=== PATIENT | male | born 1955 ===

== ENCOUNTER 2024-09-08 11:46 | Emergency (ER) | payer MEDICARE, OTHER, SELFPAY ==
[2024-09-08 11:47] VITALS: BP 153/78
--- NOTE | 2024-09-08 13:52 | ED.GENMED ---
History of Present Illness
<Farrah Penaloza PA-C - Last Filed: 09/08/24 20:15>
General
Chief Complaint: Male Genito-Urinary Symptoms
Source: patient
Exam Limitations: none
Time Seen by Provider: 09/08/24 12:59
Nursing documentation reviewed up to this point in time: agreed with
History of Present Illness
History of Present Illness:
Patient is a 69-year-old male with history hypertension, hyperlipidemia presenting to the emergency department with right inguinal pain. Patient states earlier this morning he was lying in his recliner when he had somewhat acute onset sharp pain in
his right inguinal region. He felt some radiation into his right lower abdomen although no radiation to back. He then felt nauseous and had 1 episode of dry heaving. He took Motrin although given persistence of symptoms presented to the emergency
department for evaluation. Patient denies any associated fever, chills, diarrhea/constipation, or urinary discomfort. Symptoms have improved since arrival to emergency department and now patient only has very minimal discomfort in right groin.
Of note�patient does state that about a week ago he noticed gradual onset swelling of his right scrotum. He was seen by his primary care last Monday where they suspected a hydrocele and ordered an outpatient scrotal ultrasound. However�given
scheduling difficulties�patient was unable to have ultrasound performed yet. Patient denies any pain in scrotum. No concern for STIs/STDs.
No history of kidney stones.
Review of Systems
<Farrah Penaloza PA-C - Last Filed: 09/08/24 20:15>
Review of Systems
Allergies reviewed?: Yes
All Other Systems: ROS reviewed and negative except as documented in HPI and ROS
Phy Exam
<Farrah Penaloza PA-C - Last Filed: 09/08/24 20:15>
Physical Exam
Physical Exam:
Vitals: Hypertensive, otherwise stable vital signs. Afebrile
General: Patient is well appearing, no acute distress. Nontoxic appearing
Skin: Warm and dry, no rashes or lesions
Head: Normocephalic, atraumatic
Eyes: Sclera nonicteric. EOMs intact. No nystagmus.
Throat: Protecting airway
Neck: Normal ROM, no cervical spine tenderness, no meningismus
Cardiac: Regular rate and rhythm, no murmurs.
Pulm: Normal respiratory effort, no wheezes, rales, rhonchi heard on exam.
Abdomen: Abdomen soft. Very mild right inguinal tenderness without palpable bulge. No rebound tenderness or guarding. No CVA tenderness.
: Right scrotal swelling without overlying erythema or tenderness to palpation.
Extremities: No evidence of cyanosis or edema. Palpable DP pulses bilaterally
Neuro: AAOx3. Grossly intact.
Psychiatric: Normal affect.
Course
<Farrah Penaloza PA-C - Last Filed: 09/08/24 20:15>
Orders/Labs/Results
Orders:
Orders
09/08/24 13:40
CT Abd/pelvis W Iv Cont Urgent
Comment:
Reason For Exam: Right inguinal pain, +N/V
Ketorolac [Toradol] 15 mg IV NOW STA
Scrotum US [US Scrotum] Urgent
Comment:
Reason For Exam: Right scrotal swelling
09/08/24 15:04
Complete Blood Count/With Diff Urgent
Comprehensive Metabolic Panel Urgent
Urinalysis Reflex To Culture Urgent
Date Specimen was Collected: 09/08/24
Time Specimen was Collected: 14:49
Urine Microscopic Reflex Cult Urgent
Abnormal Lab Results
09/08/24
15:04
WBC 12.6 H 10^3/uL
(4.8-10.8)
MCH 31.5 H pg
(27.0-31.0)
Abs Immat Gran (auto) 0.1 H 10^3/uL
(0-0.05)
Absolute Neuts (auto) 10.6 H 10^3/uL
(1.4-6.5)
Absolute Monos (auto) 0.7 H 10^3/uL
(0.1-0.6)
Neutrophils % 83.9 H %
(42.2-75.2)
Lymphocytes % 9.7 L %
(20.5-51.1)
Glucose 127 H mg/dl
(70-99)
Ur Occult Blood Reflex 2+ A
(Negative)
Urine RBC 3-6 A /HPF
(0-2)
Urine Bacteria (Reflex) Few A
(Negative)
Urine Albumin (Reflex) 1+ A
(Neg - Trace)
09/08/24 15:04
09/08/24 15:04
Vital Signs
Initial and Last Documented VS:
Initial Vital Signs
Temp Pulse Resp BP Pulse Ox
97.9 F 51 20 153/78 100
09/08/24 11:47 09/08/24 11:47 09/08/24 11:47 09/08/24 11:47 09/08/24 11:47
Last Documented Vital Signs
Temp Pulse Resp BP Pulse Ox
97.9 F 57 18 135/81 97
09/08/24 11:47 09/08/24 18:00 09/08/24 18:00 09/08/24 18:00 09/08/24 18:00
<Dylon Pinto MD - Last Filed: 09/08/24 17:47>
Orders/Labs/Results
Orders:
Orders
09/08/24 13:40
CT Abd/pelvis W Iv Cont Urgent
Comment:
Reason For Exam: Right inguinal pain, +N/V
Ketorolac [Toradol] 15 mg IV NOW STA
Scrotum US [US Scrotum] Urgent
Comment:
Reason For Exam: Right scrotal swelling
09/08/24 15:04
Complete Blood Count/With Diff Urgent
Comprehensive Metabolic Panel Urgent
Urinalysis Reflex To Culture Urgent
Date Specimen was Collected: 09/08/24
Time Specimen was Collected: 14:49
Urine Microscopic Reflex Cult Urgent
Abnormal Lab Results
09/08/24
15:04
WBC 12.6 H 10^3/uL
(4.8-10.8)
MCH 31.5 H pg
(27.0-31.0)
Abs Immat Gran (auto) 0.1 H 10^3/uL
(0-0.05)
Absolute Neuts (auto) 10.6 H 10^3/uL
(1.4-6.5)
Absolute Monos (auto) 0.7 H 10^3/uL
(0.1-0.6)
Neutrophils % 83.9 H %
(42.2-75.2)
Lymphocytes % 9.7 L %
(20.5-51.1)
Glucose 127 H mg/dl
(70-99)
Ur Occult Blood Reflex 2+ A
(Negative)
Urine RBC 3-6 A /HPF
(0-2)
Urine Bacteria (Reflex) Few A
(Negative)
Urine Albumin (Reflex) 1+ A
(Neg - Trace)
09/08/24 15:04
09/08/24 15:04
Vital Signs
Initial and Last Documented VS:
Initial Vital Signs
Temp Pulse Resp BP Pulse Ox
97.9 F 51 20 153/78 100
09/08/24 11:47 09/08/24 11:47 09/08/24 11:47 09/08/24 11:47 09/08/24 11:47
Last Documented Vital Signs
Temp Pulse Resp BP Pulse Ox
97.9 F 57 18 135/81 97
09/08/24 11:47 09/08/24 18:00 09/08/24 18:00 09/08/24 18:00 09/08/24 18:00
<Farrah Penaloza PA-C - Last Filed: 09/08/24 20:15>
MDM/Problems Addressed
Differential Diagnosis Includes:
Not limited to: Inguinal hernia, hydrocele, kidney stone, UTI, epididymitis, orchitis, etc.
MDM/Problems Addressed:
69-year-old male presenting with right scrotal swelling and right inguinal discomfort essentially resolved by arrival to emergency department. There was nausea and few episodes of dry heaves this morning. No fever, urinary complaints, changes in
bowel habits. Mildly hypertensive, otherwise stable vital signs. Physical exam as above. Patient with obvious scrotal swelling although no tenderness or erythema to suggest epididymitis/orchitis or infectious process. Possibilities include
hydrocele versus hernia. No palpable bulge in inguinal region. Given right inguinal pain today�will obtain labs, urine and CT for further evaluation to rule out intra-abdominal process, kidney stone, possible inguinal hernia. Will check scrotal
ultrasound given obvious scrotal swelling. Toradol for pain. Will closely monitor and reassess.
Update: Labs reviewed. Mild leukocytosis. Chemistry unremarkable. Urine with few RBCs, otherwise no signs of infection. Scrotal ultrasound does show large right inguinal hernia extending into scrotal sac. CT scan shows large right inguinal
hernia once again which contains few loops of bowel and mild inflammatory change surrounding hernia sac. No evidence of strangulation. Of note�patient was made aware of small pulmonary nodule on CT scan which she will follow with primary.
After verbal consent obtained manual reduction of hernia was attempted by myself and attending physician although unsuccessful. Patient tolerated procedure well and remains in no discomfort in emergency department. Case was discussed at length
with general surgery, Dr. Sprague. Given patient hemodynamically stable, asymptomatic with no evidence of strangulation or bowel obstruction�no indication for emergent reduction. Offered patient admission for general surgery consult tomorrow
although after shared decision making we will discharge home with general surgery follow-up outpatient. Patient appears very well and comfortable. Very strict return precautions discussed including any signs of strangulation, bowel obstruction.
Advised to avoid heavy lifting, straining, Wear supportive underwear/obtain hernia belt for support. Patient and patient's comfortable to plan. All questions answered.
Chronic conditions affecting care:
Hypertension
Acute Exacerbation and/or Progression of Chronic Illness:
Acutely apprehensive
<Farrah Penaloza PA-C - Last Filed: 09/08/24 20:15>
*Radiology
Radiology exam reviewed: preliminary read by ED provider and radiology read reviewed (CT and scrotal ultrasound showed a large right inguinal hernia extending into scrotal sac)
*Pulse Oximetry
Patient hypoxic: no
*EKG
Interpreted by ED Provider?: NA
*Slat Pickler Interpretation
Rate: Slat Pickler- N/A
*Critical Care Note
Total Time (30-74mins, 75-104mins- exclusive of procedures): Not Applicable
<Farrah Penaloza PA-C - Last Filed: 09/08/24 20:15>
Patient Management
Discussion with other providers: Hand Buffer (Discussed with general surgery)
Escalation/DeEscalation of care consider admission/obs:
Considered admission for general surgery consult although patient hemodynamically stable, in no discomfort�stable for discharge home and outpatient general surgery consult
ED Attending Note
<Farrah Penaloza PA-C - Last Filed: 09/08/24 20:15>
-
Portions of this chart may have been created with voice recognition software.� Occasional wrong word or��sound alike� substitutions may have occurred due to the inherent limitations of voice recognition software.
<Dylon Pinto MD - Last Filed: 09/08/24 17:47>
ED Attending Note
Patient seen and examined by attending physician: Yes
I performed the substantive portion of visit, reviewed & personally made and approve the management plan that is documented in note by myself or LIANA.: Yes
ED Attending Note:
I have seen and evaluated the patient with a [id number] encounter. I have spoken to the [PA] and involved in the medical history, the physical exam, medical decision making.
Evaluation and management service: agree unless noted differently below.
Results interpretation: agree unless noted differently below.
69-year-old male with history of hypertension, hyperlipidemia presenting to the emergency room with right groin pain. Patient states that he went to his primary care doctor about a week ago and was diagnosed with a hydrocele to his right scrotum.
He is without ultrasound completed but has not had that completed just yet. Today he developed right inguinal pain that does radiate into his right lower abdomen. No urinary symptoms. No fevers chills. No constipation. He denies any pain to his
right scrotum. However he does state that it is swollen. No bulge felt in the inguinal region.
On exam patient is resting comfortably. Mild tenderness to the right lower quadrant. There is no obvious bulge in the inguinal region. exam was chaperoned by PA. There is significant swelling to the right scrotum with no overlying skin
changes or tenderness.
Concern for inguinal hernia as well as possible kidney stone. Less likely to be epididymitis orchitis. Ultrasound obtained does show large right inguinal hernia extending to the scrotal sac. CT scan per my interpretation is consistent with the
hernia there is some mild edema. Per the official read no evidence of strangulation. He is overall well-appearing. We did attempt to reduce the hernia at bedside. We did have some improvement especially from the scrotal region however it was not
fully reduced. Will have surgery evaluate patient. Dispo pending surgical assessment.
Discharge Plan
Departure
Patient Disposition: Home (Routine Discharge)
Date of Disposition: 09/08/24
Time of Disposition: 18:53
Patient with high blood pressure during this ER visit?: Yes
Condition: Good
Covid-19: Not Applicable
Discharge Problem:
Irreducible right inguinal hernia
Instructions: Groin hernias, BLOOD PRESSURE
Referrals:
Jae Mariscal MD [Family Provider] -
Héctor Sprague MD [Active] - Next open appointment
Activity Restrictions/Additional Instructions:
Return to the emergency department with any fevers, intractable pain in your abdomen, groin, or scrotum, nausea/vomiting, no bowel movements, any redness or worsening swelling in groin, or any other concerns
-As discussed�you were found to have a large right inguinal hernia on your imaging in the emergency department. We were unable to successfully reduce it in the emergency department.
-It is important you follow-up with general surgery for further evaluation/management of this. Call their office tomorrow to schedule an appointment.
-You should avoid any heavy lifting until you are seen by general surgery. Avoid straining. You should wear tight fitting underwear or by hernia belt for support. Stay well-hydrated.
Monitor symptoms closely return to the emergency department with any acute worsening/new symptoms or any other concern
Interventions
Interventions:
*Risk Screen - Suicide Last Done: 09/08/24 11:47
*General Assessment Last Done: 09/08/24 11:47
*Neglect/Abuse Screening Last Done: 09/08/24 17:17
*ED- Fall Risk Assessment Last Done: 09/08/24 17:17
*ED COVID-19 Vaccine History Last Done: 09/08/24 17:17
*Nursing Disposition Last Done: 09/08/24 19:52
ED-Male Genitourinary Assessment Last Done: 09/08/24 17:17
Discharge Date and Time
Discharge Date/Time: 09/08/24 19:00
Print Language: [id number]
[2024-09-08 14:00] VITALS: BP 140/59
[2024-09-08] MEDS: TORADOL 15 MG IV (15:00)
[2024-09-08 15:17] LABS: % Basophils 0.4 % (0-2); % Eosinophils 0.1 % (0-6); % Immature Granulocytes 0.4 % (0-0.5); % Lymphocytes 9.7 % (20.5-51.1); % Monocytes 5.5 % (1.7-9.3); % Neutrophils 83.9 % (42.2-75.2); Absolute Basophils 0.1 10^3/uL (0-0.2); Absolute Immature Granulocytes 0.1 10^3/uL (0-0.05); Absolute Lymphocytes 1.2 10^3/uL (1.2-3.4); Absolute Monocytes 0.7 10^3/uL (0.1-0.6); Absolute Neutrophils 10.6 10^3/uL (1.4-6.5); Hematocrit 45.2 % (39.0-52.0); Hemoglobin 15.7 g/dL (13.0-18.0); Mean Corp Hgb Conc. 34.7 g/dL (33.0-37.0); Mean Corpuscular Hgb 31.5 pg (27.0-31.0); Mean Corpuscular Volume 90.8 fL (80.0-94.0); Mean Platelet Volume 9.6 fL (7.4-10.4); Nucleated Red Blood Cells % 0 % (-); Platelet Count 158 10^3/uL (130-400); Red Blood Cell Count 4.98 10^6/uL (4.70-6.10); Red Cell Dist. Width 13.6 % (11.5-14.5); White Blood Cell Count 12.6 10^3/uL (4.8-10.8)
[2024-09-08 15:19] LABS: Urine Albumin 1+ (Neg - Trace); Urine Bilirubin Negative (Negative); Urine Character Slightly Cloudy (Clear); Urine Color Yellow; Urine Glucose Negative (Negative); Urine Ketone Negative (Negative); Urine Leukocyte Negative (Negative); Urine Nitrite Negative (Negative); Urine Occult Blood 2+ (Negative); Urine Specific Gravity 1.025 (<1.030); Urine Urobilinogen Negative (Neg - 1+)
[2024-09-08 15:26] LABS: Urine Mucus Many
[2024-09-08 15:27] LABS: Urine White Cell 0-2 /HPF (0-5)
[2024-09-08 15:28] LABS: ALT (SGPT) 23 U/L (0-50); AST (SGOT) 30 U/L (17-59); Alkaline Phosphatase 86 U/L (38-126); Blood Urea Nitrogen 14 mg/dl (9-20); Calcium 10.1 mg/dl (8.4-10.2); Carbon Dioxide 29 mmol/L (22-30); Chloride 104 mmol/L (98-107); Glucose 127 mg/dl (70-99); Potassium 4.5 mmol/L (3.5-5.1); Sodium 139 mmol/L (135-145); Total Bilirubin 1.2 mg/dl (0.2-1.3); Urine Bacteria Few (Negative); eGFR > 60.00
[2024-09-08 16:00] VITALS: BP 135/68
[2024-09-08 18:00] VITALS: BP 135/81
== END 2024-09-08 19:00 | disposition home or self-care (01) ==
LOC: EMR 11:46
PROVIDERS: Physician Assistant; EMERGENCY PHYSICIAN Student in an Organized Health Care Education/Training Program; FAMILY PHYSICIAN Family Medicine
DX: K40.90 Unilateral inguinal hernia, without obstruction or gangrene, not specified as recurrent (principal); I10 Essential (primary) hypertension; E78.00 Pure hypercholesterolemia, unspecified
CPT/HCPCS: 99284; 96374; 74177; 76870; 80053; 81003; 81015; 85025; 93976; Q9967

== ENCOUNTER → 2024-10-22 08:57 | Outpatient (REF) | payer MEDICARE, OTHER, SELFPAY | LOC: SDSPAT 08:57 | PROVIDERS: ATTENDING PHYSICIAN Surgery; FAMILY PHYSICIAN Family Medicine | DX: K40.90 Unilateral inguinal hernia, without obstruction or gangrene, not specified as recurrent (principal) | CPT/HCPCS: 36415; 93005 ==

== ENCOUNTER 2024-11-13 06:34 | Day surgery (SDC) | payer MEDICARE, OTHER, SELFPAY ==
[2024-10-22 13:41] VITALS: BMI 37.9
[2024-11-13 08:22] VITALS: BP 130/71; BMI 37.9
[2024-11-13] MEDS: TYLENOL 1000 MG PO (08:25)
[2024-11-13] MEDS: NORMOSOL-R/PLASMALYTE-A 1000 IV (08:42)
[2024-11-13 11:16] VITALS: BP 130/71; BP 146/70
[2024-11-13 11:30] VITALS: BP 126/54
[2024-11-13 11:45] VITALS: BP 119/62; BP 128/35
[2024-11-13 12:05] VITALS: BP 123/64
== END 2024-11-13 12:41 | disposition home or self-care (01) ==
LOC: SDS 06:34
PROVIDERS: ATTENDING PHYSICIAN Surgery; FAMILY PHYSICIAN Family Medicine
DX: K40.90 Unilateral inguinal hernia, without obstruction or gangrene, not specified as recurrent (principal); D17.6 Benign lipomatous neoplasm of spermatic cord
CPT/HCPCS: 49650; C1781